=== PATIENT | female | born 1950 | race Caucasian/White ===

== ENCOUNTER 2017-03-15 15:15 | Inpatient (IN) | payer MEDICARE, OTHER ==
[~2017-03-15 15:15] MED LIST: LACTATED RINGER'S 1000 ML INJ 1,000 ML IV ONE; ONDANSETRON HCL 4 MG/2 ML VIAL IV PUSH ONE; PROPOFOL 200 MG/20 ML AMP IV ONE; ePHEDrine/NS 25 MG/5 ML SYR IV ONE
[2017-03-15] MEDS ORDERED: LIDOCAINE HCL 1% 50 ML VIAL ONE (15:44)
[2017-03-15] MEDS ORDERED: BUPIVACAINE HCL PF 0.5% 30 ML VIAL ONE (15:44)
[2017-03-15] MEDS ORDERED: LIDOCAINE HCL 2% 50 ML VIAL ONE (15:45)
[2017-03-15 15:54] VITALS: BP 137/70; PULSE 53; RESP 16; TEMP 97.5; O2SAT 96
[2017-03-15] MEDS ORDERED: ACETAMINOPHEN 325 MG TAB PO PRN (17:00)
[2017-03-15] MEDS ORDERED: TEMAZEPAM 15 MG CAP PO PRN (17:00)
[2017-03-15] MEDS ORDERED: NALOXONE HCL 0.4 MG/ML AMP IV PRN (17:00)
[2017-03-15] MEDS ORDERED: MAGNESIUM HYDROXIDE SUSP 30 ML CUP PO PRN (17:00)
[2017-03-15] MEDS ORDERED: SODIUM CHLORIDE 0.9% FLUSH 10 ML FLUSH IV FLUSH PRN (17:00)
[2017-03-15] MEDS ORDERED: ONDANSETRON HCL 4 MG/2 ML VIAL IVP PRN (17:00)
[2017-03-15] MEDS ORDERED: HYDROmorphone HCL PF 1 MG/ML VIAL IV PUSH PRN (17:15)
--- NOTE | 2017-03-15 17:16 | HHI.HP ---
HPI Service [facility] Hospitalists Primary Care Physician Unknown Admission Diagnosis Chief Complaint: pain at right third digit Travel History International Travel<30 Days: No Contact w/Intl Traveler <30 Da: No Traveled to Known Affected Are: No History of Present Illness Pt has been taken to the OR & I cannot access pt's outpt records at this time. Per ER report, pt is a healthy 67 y/o F who presented to the ER after injuring her right 3rd digit when a lid fell on her hand while grilling. Pt developed immediate pain, laceration and deformity of the finger. Hand x- ray confirmed fracture of the right hand 3rd digit. Pt was given IV ancef. Admission to the [facility] medical service was requested by ER physician. Consultation placed to Hand Surgeon for surgical repair of right 3rd digit fracture and laceration repair. Additional information obtained from pt 03/16/17 & H&P was modified Review of Systems Constitutional: DENIES: Diaphoretic episodes, Fatigue, Fever, Weight gain, Weight loss, Chills, Dizziness, Change in appetite, Night Sweats Endocrine: DENIES: Heat/cold intolerance, Polydipsia, Polyuria, Polyphagia Eyes: DENIES: Blurred vision, Diplopia, Eye inflammation, Eye pain, Vision loss , Photosensitivity, Double Vision Ears, nose, mouth, throat: DENIES: Tinnitus, Hearing loss, Vertigo, Nasal discharge, Oral lesions, Throat pain, Hoarseness, Ear Pain, Running Nose, Epistaxis, Sinus Pain, Toothache, Odynophagia Respiratory: DENIES: Apneas, Cough, Snoring, Wheezing, Hemoptysis, Sputum production, Shortness of breath Cardiovascular: DENIES: Chest pain, Palpitations, Syncope, Dyspnea on Exertion , PND, Lower Extremity Edema, Orthopnea, Claudication Gastrointestinal: DENIES: Abdominal pain, Black stools, Bloody stools, BRB per rectum, Constipation, Diarrhea, GERD, Nausea, Reflux, Vomiting, Difficulty Swallowing, Anorexia Genitourinary: DENIES: Urinary frequency, Urinary incontinence, Urgency, Hematuria, Dysuria, Nocturia Musculoskeletal: COMPLAINS OF: Joint pain, DENIES: Muscle aches, Stiffness, Joint Swelling, Back pain, Neck pain Integumentary: DENIES: Abnormal pigmentation, Pruritus, Rash, Nail changes, Breast masses, Breast skin changes, Nipple discharge Hematologic/lymphatic: DENIES: Bruising, Lymphadenopathy Immunologic/allergic: DENIES: Eczema, Urticaria Neurologic: DENIES: Abnormal gait, Headache, Localized weakness, Paresthesias, Seizures, Speech Problems, Tremor, Poor Balance Psychiatric: DENIES: Anxiety, Confusion, Mood changes, Depression, Hallucinations, Agitation, Suicidal Ideation, Homicidal Ideation, Delusions, History of Bipolar, History of Schizophrenia Past Family Social History Past Medical History ?H.Pylori diagnosed after EGD. Pt received treatment. Past Surgical History - C/S x 4 - EGD Reported Medications none Allergies: Coded Allergies: No Known Allergies (Unverified , 03/15/17) Family History non-contributory Social History - denies etoh - denies tobacco - denies illicit drug use Physical Exam Vital Signs Vital Signs Date Time Temp Pulse Resp B/P (MAP) Pulse Ox O2 Delivery O2 Flow Rate FiO2 03/15/17 15:54 97.5 53 16 137/70 (92) 96 Physical Exam GENERAL: This is a well-nourished, well-developed patient, in no apparent distress. SKIN: No rashes, ecchymoses or lesions. Cool and dry. HEAD: Atraumatic. Normocephalic. No temporal or scalp tenderness. EYES: Pupils equal round and reactive. Extraocular motions intact. No scleral icterus. No injection or drainage. ENT: Nose without bleeding, purulent drainage or septal hematoma. Throat without erythema, tonsillar hypertrophy or exudate. Uvula midline. Airway patent. NECK: Trachea midline. No JVD or lymphadenopathy. Supple, nontender, no meningeal signs. CARDIOVASCULAR: Regular rate and rhythm without murmurs, gallops, or rubs. RESPIRATORY: Clear to auscultation. Breath sounds equal bilaterally. No wheezes , rales, or rhonchi. GASTROINTESTINAL: Abdomen soft, non-tender, nondistended. No hepato-splenomegaly , or palpable masses. No guarding. MUSCULOSKELETAL: Pt examined post operatively and right hand is bandaged NEUROLOGICAL: Awake and alert. Cranial nerves II through XII intact. Motor and sensory grossly within normal limits. Five out of 5 muscle strength in all muscle groups. Normal speech. Septic Shock Reassessment Heart: Regular rate and rhythm Lungs: Clear Skin: Warm Peripheral Pulses: Bounding Right Radial Bounding Left Radial Bounding Right Popliteal Bounding Left Popliteal Bounding Right Dorsalis Pedis Bounding Left Dorsalis Pedis Bounding Right Posterior Tibial Bounding Left Posterior Tibial Capillary Refill: Brisk Caprini VTE Risk Assessment Caprini VTE Risk Assessment: No/Low Risk (score <= 1) Caprini Risk Assessment Model Point Value = 1 Point Value = 2 Point Value = 3 Point Value = 5 Age 41-60 Minor surgery BMI > 25 kg/m2 Swollen legs Varicose veins or History of unexplained or recurrent spontaneous Oral contraceptives or hormone replacement Sepsis (< 1 month) Serious lung disease, including pneumonia (< 1 month) Abnormal pulmonary function Acute myocardial infarction Congestive heart failure (< 1 month) History of inflammatory bowel disease Medical patient at bed rest Age 61-74 Arthroscopic surgery Major open surgery (> 45 min) Laparoscopic surgery (> 45 min) Malignancy Confined to bed (> 72 hours) Immobilizing plaster cast Central venous access Age >= 75 History of VTE Family history of VTE Factor V Leiden Prothrombin [id number] Lupus anticoagulant Anticardiolipin antibodies Elevated serum homocysteine Heparin-induced thrombocytopenia Other congenital or acquired thrombophilia Stroke (< 1 month) Elective arthroplasty Hip, pelvis, or leg fracture Acute spinal cord injury (< 1 month) Prophylaxis Regimen Total Risk Factor Score Risk Level Prophylaxis Regimen 0-1 Low Early ambulation 2 Moderate Order ONE of the following: *Sequential Compression Device (SCD) *Heparin 5000 units SQ BID 3-4 Higher Order ONE of the following medications: *Heparin 5000 units SQ TID *Enoxaparin/Lovenox 40 mg SQ daily (WT < 150 kg, CrCl > 30 mL/min) *Enoxaparin/Lovenox 30 mg SQ daily (WT < 150 kg, CrCl > 10-29 mL/min) *Enoxaparin/Lovenox 30 mg SQ BID (WT < 150 kg, CrCl > 30 mL/min) AND/OR *Sequential Compression Device (SCD) 5 or more Highest Order ONE of the following medications: *Heparin 5000 units SQ TID (Preferred with Epidurals) *Enoxaparin/Lovenox 40 mg SQ daily (WT < 150 kg, CrCl > 30 mL/min) *Enoxaparin/Lovenox 30 mg SQ daily (WT < 150 kg, CrCl > 10-29 mL/min) *Enoxaparin/Lovenox 30 mg SQ BID (WT < 150 kg, CrCl > 30 mL/min) AND *Sequential Compression Device (SCD) Assessment and Plan Problem List: (1) Closed fracture dislocation of digit of hand ICD Codes: S62.609A - Fracture of unspecified phalanx of unspecified finger, initial encounter for closed fracture Plan: - Pt reported to the ER with c/o pain at right 3rd digit after a lid fell on her hand while grilling - Pt suffered comminuted, close fracture of mid-phalanx of 3rd digit of right hand - Pt taken to the OR by Dr. Jackson - Currently pt is in the OR. I am unable to interview & examine pt - continue IV ancef - norco/dilaudid prn pain - DVT prophylaxis Physician Certification 2 Midnight Certification Type: Admission for Inpatient Services Order for Inpatient Services The services are ordered in accordance with Medicare regulations or non- Medicare payer requirements, as applicable. In the case of services not specified as inpatient-only, they are appropriately provided as inpatient services in accordance with the 2-midnight benchmark. Estimated LOS (days): 3 3 days is the estimated time the patient will need to remain in the hospital, assuming treatment plan goals are met and no additional complications. Post-Hospital Plan: Home Eric Duarte DO Mar 15, 2017 17:16
[2017-03-15] MEDS ORDERED: ceFAZolin INJ 1,000 MG VIAL ONE (17:38)
[2017-03-15] MEDS ORDERED: ACETAMINOPHEN 1000 MG/100 ML 100 ML IV ONE (17:39)
[2017-03-15] MEDS ORDERED: MIDAZOLAM HCL 2 MG/2 ML VIAL ONE (17:39)
[2017-03-15] MEDS ORDERED: DO NOT ADM ANY ANTICOAGULANT DRUGS PRN (19:00)
--- NOTE | 2017-03-15 20:29 | PD.ORT.PN ---
Subjective Subjective Remarks Please see dictated notes for full details. Patient reports pain controlled. Objective Vitals Vital Signs Date Time Temp Pulse Resp B/P (MAP) Pulse Ox O2 Delivery O2 Flow Rate FiO2 03/15/17 19:45 98.0 69 17 149/90 (109) 99 03/15/17 19:30 63 17 144/89 (107) 100 2 03/15/17 19:15 97.9 70 17 149/91 (110) 100 2 03/15/17 17:04 97.4 50 16 151/78 (102) 99 03/15/17 15:54 97.5 53 16 137/70 (92) 96 I/O 03/14/17 03/14/17 03/14/17 03/15/17 03/15/17 03/15/17 07:00 15:00 23:00 07:00 15:00 23:00 Intake Total 700 ml Output Total 1 ml Balance 699 ml Intake Other 700 ml Output Estimated Blood Loss 1 ml Objective Remarks Dorsal Blocking Splint in place, <2 sec capillary refill right middle finger Assessment & Plan Assessment and Plan 67yF POD0 s/p I&D right middle finger, pinning right middle finger for open middle phalanx fracture -Admit for IV Ab, cleared for d/c on oral antibiotics 03/16 -Followup in office 1 week -Patient to stay out of work for likely 2 weeks -Pain control and medical management per primary team -Nonweightbearing right hand, keep splint in place Natividad Jackson MD Mar 15, 2017 20:29
[2017-03-15 20:50] VITALS: BP 135/65; PULSE 58; RESP 18; TEMP 98.4; O2SAT 95
[2017-03-15] MEDS: ACETAMINOPHEN/HYDROcodone 325 MG/5 MG TAB PO PRN (23:08)
[2017-03-15] MEDS: SODIUM CHLORIDE 0.9% FLUSH 10 ML FLUSH IV FLUSH SCH (23:08)
[2017-03-16 00:38] VITALS: BP 91/55; PULSE 56; RESP 18; TEMP 98.4; O2SAT 90
[2017-03-16 00:48] VITALS: RESP 20; O2SAT 96
[2017-03-16] MEDS ORDERED: PREV30CA11 PO (04:03)
[2017-03-16 04:30] VITALS: BP 97/52; PULSE 56; PULSE 63; RESP 18; TEMP 98.1; O2SAT 93; O2SAT 97
[2017-03-16 07:01] VITALS: BP 114/61; PULSE 62; RESP 16; TEMP 98.6; O2SAT 97
[2017-03-16 07:38] LABS: AUTOMATED NEUTROPHIL # 6.4 TH/MM3 (1.8-7.7); BASOPHIL % 0.1 % (0.0-2.0); HEMATOCRIT 41.5 % (35.0-46.0); HEMO FLAGS DIFF FINAL; LYMPH % 14.3 % (9.0-44.0); LYMPHOCYTE # 1.1 TH/MM3 (1.0-4.8); MEAN CELL VOLUME 92.2 FL (80.0-100.0); MEAN CORPUSCULAR HEMOGLOBIN 31.8 PG (27.0-34.0); MEAN CORPUSCULAR HGB CONC 34.5 % (32.0-36.0); MONO % 1.9 % (0.0-8.0); NEUT % 83.7 % (16.0-70.0); PLATELET COUNT 202 TH/MM3 (150-450); RED CELL DISTRIBUTION WIDTH 12.8 % (11.6-17.2); WHITE BLOOD COUNT 7.7 TH/MM3 (4.0-11.0)
[2017-03-16 08:00] LABS: POTASSIUM 3.8 MEQ/L (3.5-5.1)
[2017-03-16] MEDS ORDERED: PNEUMOCOCCAL POLYVALENT INJ 25 MCG/0.5 ML SYR IM ONE (09:00)
[2017-03-16] MEDS ORDERED: INFLUENZA VIRUS VACCINE (QUADRIVALENT) 0.5 ML SYR IM ONE (09:00)
[2017-03-16] MEDS: ACETAMINOPHEN/HYDROcodone 325 MG/5 MG TAB PO PRN (10:36)
[2017-03-16] MEDS: SODIUM CHLORIDE 0.9% FLUSH 10 ML FLUSH IV FLUSH SCH (10:39)
--- NOTE | 2017-03-16 11:56 | HHI.PR ---
Subjective Remarks No new complaints. Pain is controlled. Pt is eager for discharge. Objective Vitals Vital Signs Date Time Temp Pulse Resp B/P (MAP) Pulse Ox O2 Delivery O2 Flow Rate FiO2 03/16/17 07:01 98.6 62 16 114/61 (78) 97 03/16/17 04:30 98.1 56 18 97/52 (67) 93 03/16/17 00:48 20 96 03/16/17 00:38 98.4 56 18 91/55 (67) 90 03/16/17 00:20 18 03/15/17 20:50 98.4 58 18 135/65 (88) 95 03/15/17 19:45 98.0 69 17 149/90 (109) 99 03/15/17 19:30 63 17 144/89 (107) 100 2 03/15/17 19:15 97.9 70 17 149/91 (110) 100 2 03/15/17 17:04 97.4 50 16 151/78 (102) 99 03/15/17 15:54 97.5 53 16 137/70 (92) 96 03/16/17 03/16/17 03/17/17 15:00 23:00 07:00 Intake Total 200 ml Balance 200 ml Intake Oral 200 ml Result Diagram: 03/16/17 0603/16/17 0630 Objective Remarks GENERAL: This is a well-nourished, well-developed patient, in no apparent distress. CARDIOVASCULAR: Regular rate and rhythm without murmurs, gallops, or rubs. RESPIRATORY: Clear to auscultation. Breath sounds equal bilaterally. No wheezes , rales, or rhonchi. GASTROINTESTINAL: Abdomen soft, non-tender, nondistended. Normal active bowel sounds MUSCULOSKELETAL: right hand is bandaged NEURO: Alert & Oriented x4 to person, place, time, situation. Moves all ext x4 A/P Problem List: (1) Closed fracture dislocation of digit of hand ICD Codes: S62.609A - Fracture of unspecified phalanx of unspecified finger, initial encounter for closed fracture Plan: - Pt reported to the ER with c/o pain at right 3rd digit after a lid fell on her hand while grilling - Pt suffered comminuted, close fracture of mid-phalanx of 3rd digit of right hand - Pt taken to the OR by Dr. Jackson (03/15/17) - Pt underwent irrigation and debridement of right middle finger wound - Pt underwent Pinning of right middle finger - Case d/w Dr. Natividad Jackson (03/16/17). Pt surgically cleared for discharge - f/u with Dr. Jackson in 1 week - keflex 500mg PO QID x 7d - norco prn pain - zofran prn nausea - see discharge orders Eric Duarte DO Mar 16, 2017 11:56
--- NOTE | 2017-03-16 11:57 | HHI.DCPOC ---
Discharge Care Plan Diagnosis: (1) Closed fracture dislocation of digit of hand Goals to Promote Your Health * To prevent worsening of your condition and complications * To maintain your health at the optimal level Directions to Meet Your Goals Take your medications as prescribed Follow your dietary instruction Follow activity as directed Keep your appointments as scheduled Take your immunizations and boosters as scheduled If your symptoms worsen call your PCP, if no PCP go to Urgent Care Center or Emergency Room Smoking is Dangerous to Your Health. Avoid second hand smoke Call the 24-hour hour crisis hotline for domestic abuse at Eric Duarte DO Mar 16, 2017 11:56
[2017-03-16] MEDS ORDERED: NORC5TAB PO (11:58)
[2017-03-16] MEDS ORDERED: ZOFR4TAB3 SL (11:58)
[2017-03-16] MEDS ORDERED: CEPH-460 PO (11:58)
--- NOTE | 2017-03-16 14:10 | EKG ---
Date Performed: 03/15/2017 Time Performed: 16:20:04 PTAGE: 67 years EKG: SINUS BRADYCARDIA LOW QRS VOLTAGE IN PRECORDIAL LEADS BORDERLINE ECG NO PREVIOUS TRACING DOCTOR: Lucila Maldonado Interpretating Date/Time 03/16/2017 14:06:53
--- NOTE | 2017-03-16 16:54 | MB ---
cc: TY CABRAL DATE OF CONSULTATION 03/15/2017 REASON FOR CONSULTATION Open displaced fracture right middle finger middle phalanx. HISTORY OF PRESENT ILLNESS Faith Mendenhall is a pleasant 67-year-old left-hand dominant female who was outside today and sustained an injury to her right middle finger from the grill. This was an open displaced fracture. The patient was transferred from [facility] for evaluation. She reported mild paresthesias of the tip of the finger. She had less than 2 second capillary refill. She denies prior injury to the finger. She has had prior external fixator on the right wrist. She is left-hand dominant. She works in a cafeteria. The injury occurred at home. She is here today with her daughter. PAST MEDICAL HISTORY Hypertension. ALLERGIES No known drug allergies. SOCIAL HISTORY The patient denies tobacco, alcohol and drug use. PHYSICAL EXAMINATION GENERAL: The patient is alert and oriented, here with her daughter. EXTREMITIES: Exam of the right middle finger shows less than 2-second capillary refill. There is a curvilinear laceration on the radial border of the right middle finger going from the PIP joint across the DIP joint. There is gross deformity of the finger ulnarly. Sensation present but decreased on the radial side and intact on the ulnar side. The patient is able to gently flex and extend the PIP joint. IMAGING STUDIES X-rays taken show an open displaced fracture of the middle phalanx. ASSESSMENT/PLAN 67 year old female with an open displaced fracture of the right middle finger middle phalanx I discussed the case with the emergency room physician and recommended transfer to the main hospital for urgent irrigation debridement, possible pinning, repair of any injured structures and the patient elected to proceed. Risks were explained to include but not limited to wound complications, infection, sepsis, pain, paresthesias, stiffness, nonunion, malunion and she elected to proceed. MD CHEYANNE Ward/ELENA /8:33 PM /4:37 PM [facility] CENTERFederica
--- NOTE | 2017-03-17 21:59 | MP ---
cc: NATIVIDAD JACKSON DATE OF SURGERY 03/15/2017 PREOPERATIVE DIAGNOSIS 1. Open displaced right middle finger middle phalanx fracture. 2. Open wound/laceration right middle finger. POSTOPERATIVE DIAGNOSIS 1. Open displaced right middle finger middle phalanx fracture. 2. Open wound/laceration right middle finger. PROCEDURE 1. Irrigation and debridement open wound including skin, subcutaneous tissue, muscle and bone of open fracture. 2. Exploration penetrating wound right middle finger. 3. Reduction and Pinning right middle finger middle phalanx fracture. 4. Interpretation of fluoroscopy throughout the procedure by the surgeon right jose becker. SURGEON Dr. Natividad Jackson ANESTHESIA General and local TOURNIQUET TIME 5 minutes at 250 mmHg IMPLANTS One 0.045 K-wire which is temporary. HISTORY OF PRESENT ILLNESS Faith Mendenhall is a 67-year-old left-hand dominant female who sustained an injury earlier today from a grill lacerating and fracturing the right middle finger. The patient was transferred for evaluation. She had good capillary refill to the finger. There was a large laceration on the radial aspect of the right middle finger with an open displaced fracture of the right middle finger middle phalanx. Treatment options were discussed with the patient and she agreed to proceed with surgical intervention. The risks were explained not limited to wound complications, infection, malunion, nonunion, stiffness, pain, need for additional surgeries and she elected to proceed. DESCRIPTION OF PROCEDURE The patient was identified in the preoperative holding area. The correct extremity was marked. The patient was taken to the operating room where anesthesia was induced. The right upper extremity was prepped and draped in the normal sterile fashion. The wound was irrigated with three liters of antibiotic saline. The open fracture including skin, subcutaneous tissue, muscle, and bone was debrided with curettes and a rongeur. The extensor tendon was found to be intact. The flexor tendon was found to be intact. The digital nerve was found to be intact. The patient had an open displaced fracture of the of right middle finger middle phalanx. Under fluoroscopy, a 0.045 K-wire was placed from distal to proximal and had near anatomic alignment of the fracture. This was cut outside of the skin and Jurgan's ball was placed. Again, AP and lateral x-rays were interpreted by the surgeon and a copy was placed into the chart showing good alignment of the fracture. Approximately 5 cc of 2% lidocaine with no epinephrine was used to perform a digital block over the finger. The wound was irrigated and then closed with chromic. The patient maintained less than 2-second capillary refill to the finger after the tourniquet was released. She was placed into a dorsal blocking splint. She remained in the hospital for IV antibiotics and likely will be discharged for follow up in the office and a custom splint. The plan will be to keep the K-wire in place for approximately four weeks. Again, the patient understands she is at risk for infection, nonunion, malunion, and stiffness. She was awoken from anesthesia without any complications. MD CHEYANNE Ward/KIM /8:36 PM /9:46 PM MTD[facility]ederica
== END 2017-03-16 17:16 | disposition home or self-care (01) | DRG 514 ==
LOC: NEDDLT 15:15 → NEPHCDU 15:25 → N07B 17:12 → NEPHCDU 17:12
PROVIDERS: ADMIT Hospitalist; ATTEND Hospitalist
PROC: 0PBT0ZZ Excision of Right Finger Phalanx, Open Approach (ICD-10-PCS; 2017-03-15)
PROC: 0PST04Z Reposition Right Finger Phalanx with Internal Fixation Device, Open Approach (ICD-10-PCS; principal; 2017-03-15 17:50)
DX: S62.622B Displaced fracture of middle phalanx of right middle finger, initial encounter for open fracture (principal); I10 Essential (primary) hypertension; W20.8XXA Other cause of strike by thrown, projected or falling object, initial encounter; Y93.89 Activity, other specified; Y92.9 Unspecified place or not applicable
CPT/HCPCS: 73140; 76000; 80048; 85025; 90471; 90686; 90714; 90732; 93005; 96365; 96366; 96375; J0131; J0690; J1170; J2250; J2405; J3010; J7120; Q2038